=== PATIENT | male | born 1980 | race Hispanic/Latino ===

== ENCOUNTER 2024-01-04 22:12 | Emergency (ER) | payer OTHER ==
[~2024-01-04 22:12] MED LIST: OMEPRAZOLE40 MG PO
[2024-01-09] MEDS ORDERED: PROTONIX20 MG PO (15:24)
== END 2024-01-04 22:20 | disposition left against medical advice (07) ==
LOC: ER 22:15
DX: R10.9 Unspecified abdominal pain (principal)